=== PATIENT | male | born 1990 | race Caucasian/White ===

== ENCOUNTER 2019-08-29 16:42 | Observation (INO) | payer OTHER ==
[~2019-08-29 16:42] MED LIST: Iopamidol 370 76% 100 ML VIAL ONE; Iopamidol-370 76% 500 ML 1 ML ONE
[2019-08-29 18:07] LABS: #Basophils 0.1 thou/uL (0.0-0.2); #Eosinphils 0.1 thou/uL (0.0-0.7); #Monocytes 1.2 thou/uL (0.11-0.59); #Neutrophils 6.2 thou/uL (1.40-6.50); %Basophils 0.8 % (0.0-1.0); %Eosinophils 1.2 % (0.0-10.0); %Lymphocytes 28.6 % (21.0-51.0); %Monocytes 10.9 % (0.0-10.0); %Neutrophils 58.5 % (42.0-75.0); Hemoglobin 15.9 g/dL (14.0-18.0); Mean Corpuscular HGB CONC 33.4 g/dL (32.0-36.0); Mean Corpuscular Hemoglobin 30.8 pg (27.0-31.0); Mean Corpuscular Volume 92.3 fL (78.0-98.0); Platelet Count 195 thou/uL (130-400); Red Blood Cell (RBC) Count 5.18 mill/uL (4.70-6.10); White Blood Cell (WBC) Count 10.5 thou/uL (4.8-10.8)
[2019-08-29 18:29] LABS: ALT (SGPT) 193 U/L (8-55); AST (SGOT) 83 U/L (5-34); Albumin 4.7 g/dL (3.5-5.0); Alkaline Phosphatase 47 U/L (40-110); Anion Gap 14 mmol/L (10-20); BUN (Urea Nitrogen) 10 mg/dL (8.9-20.6); Bilirubin, Total 2.5 mg/dL (0.2-1.2); Calc. Creatinine Clearance 0 mL/min (70-130); Calcium 9.7 mg/dL (7.8-10.44); Carbon Dioxide 25 mmol/L (22-29); Chloride 103 mmol/L (98-107); Estimated GFR-MDRD 78; Glucose 90 mg/dL (70-105); Lipase 12 U/L (8-78); Potassium 3.8 mmol/L (3.5-5.1); Protein, Total 8.7 g/dL (6.0-8.3); Sodium 138 mmol/L (136-145)
[2019-08-29] MEDS ORDERED: Morphine 4 MG/ML VIAL ONE (19:45)
[2019-08-29] MEDS ORDERED: Ondansetron PF 4 MG/2 ML Vial ONE ×5 (19:45→19:48)
[2019-08-29] MEDS ORDERED: Piperacillin/Tazobactam 3.375 GM VIAL ONE (21:48)
--- NOTE | 2019-08-29 21:50 | CT ---
CT OF THE ABDOMEN AND PELVIS WITH IV CONTRAST INDICATION: Right lower quadrant abdominal pain with fever COMPARISON: None FINDINGS: ABDOMEN: Lung bases: There is bibasilar atelectasis Liver: There is fatty infiltration of the liver. There is a triangular region of peripheral enhanceme nt involving segment 6 of the right hepatic lobe. This is suspicious for a transient hepatic attenuation difference or possibly a small AV fistula. Small capillary hemangioma could have a simila r appearance. Gallbladder: Normal appearing. Pancreas: Normal. Adrenal glands: Normal. Spleen: Normal. Kidneys and ureters: Normal. No hydronephrosis. Vasculature: Normal. Lymph nodes:No lymphadenopathy. Free fluid in abdomen:Mild amount of fluid is seen within the right lower quadrant of the abdomen adj acent to an enlarged and inflamed appendix. PELVIS: Small and large bowel: Normal Appendix:The appendix is enlarged and the right lower quadrant on image 73 of series 2 measuring 11 m m. There is inflammatory stranding seen within this region. There is mild cecal apical wall thickening. There is mild wall thickening involving the adjacent terminal ileum, likely reactive. No overt drainable fluid collection is evident. Bladder: Normal. Rectal and perirectal soft tissues:Normal. Reproductive structures: Normal. Free fluid in pelvis: No free fluid is evident. Lymphadenopathy pelvis: There are enlarged lymph nodes within the right inguinal region. The largest measuring up to 2 cm. Osseous structures: No acute osseous abnormality. No destructive osteolytic or osteoblastic lesion i s identified. Soft tissues:Normal. IMPRESSION: 1. Findings of noncomplicated acute appendicitis 2. Findings called to Valeria Barreto NP at 9:45 PM on August 29, 2019. 3. Enlarged lymph nodes of the right inguinal region likely reactive. 4. Fatty liver with suspected transient hepatic attenuation difference.
[2019-08-29] MEDS ORDERED: Sodium Chloride 0.9% 1,000 ML IV SCH (23:28)
[2019-08-29] MEDS ORDERED: Dextrose 50% Abboject 50 ML SYRINGE SLOW IVP PRN (23:42)
[2019-08-29] MEDS ORDERED: Promethazine HCl 25 MG/ML VIAL IM PRN (23:42)
[2019-08-29] MEDS ORDERED: HumaLOG 300 UNITS/3 ML VIAL SC PRN (23:42)
[2019-08-29] MEDS ORDERED: hydrALAZINE 20 MG/ML VIAL SLOW IVP PRN (23:42)
[2019-08-29] MEDS ORDERED: Dextrose 5% in Water 1,000 ML IV PRN (23:42)
[2019-08-29] MEDS ORDERED: Ondansetron PF 4 MG/2 ML Vial IVP PRN (23:42)
[2019-08-29] MEDS ORDERED: Morphine 4 MG/ML VIAL SLOW IVP PRN (23:42)
[2019-08-29] MEDS ORDERED: Morphine 2 MG/ML SYRINGE SLOW IVP PRN (23:42)
[2019-08-29 23:45] VITALS: BMI 26.7
[2019-08-30] MEDS: Sodium Chloride 0.9% 1,000 ML IV SCH ×2 (01:09→11:50)
[2019-08-30] MEDS ORDERED: Piperacillin/Tazobactam 3.375 GM in Sodium Chloride 0.9% 100 ML IVPB SCH (04:00)
[2019-08-30] MEDS: Piperacillin/Tazobactam 3.375 GM in Sodium Chloride 0.9% 100 ML IVPB SCH ×2 (04:49→09:59)
[2019-08-30] MEDS ORDERED: Bupivacaine 0.25% HCL 30 ML VIAL ONE (07:28)
[2019-08-30] MEDS ORDERED: Lidocaine 1% w/Epinephrine 1:100K 20 ML VIAL ONE (07:28)
[2019-08-30] MEDS ORDERED: Fentanyl 100 MCG/2 ML VIAL ONE ×2 (07:59→09:36)
[2019-08-30] MEDS ORDERED: Succinylcholine Chloride 20 MG/ML 10 ml SYRINGE FS ONE (08:12)
[2019-08-30] MEDS ORDERED: Rocuronium Bromide 10 MG/ML (10ML VIAL) ONE (08:12)
[2019-08-30] MEDS ORDERED: PROPOFOL 200 MG/20 ML VIAL ONE (08:12)
[2019-08-30] MEDS ORDERED: Ketorolac Tromethamine 30 MG/ML VIAL ONE (08:12)
[2019-08-30] MEDS ORDERED: Ondansetron PF 4 MG/2 ML Vial ONE (08:12)
[2019-08-30] MEDS ORDERED: Glycopyrrolate 0.2 MG/ML 5 ML SYRINGE ONE (08:12)
[2019-08-30] MEDS ORDERED: Dexamethasone 20 MG/5 ML VIAL ONE (08:12)
[2019-08-30] MEDS ORDERED: Lidocaine 1% PF 5 ML VIAL ONE (08:12)
--- NOTE | 2019-08-30 08:37 | HP ---
CHIEF COMPLAINT: Right lower quadrant pain. HISTORY OF PRESENT ILLNESS: This is a 29-year-old male, who presents with a history of diffuse mild abdominal pain, became more localized to the right lower quadrant, pain described as sharp 8/10, worsened overnight, seen in the emergency room, where CT scan shows acute appendicitis. Never had this pain before. Denies chronic abdominal pain. Denies history of chronic inflammatory bowel disease or Crohn disease. PAST MEDICAL HISTORY: He denies. PAST SURGICAL HISTORY: Denies. MEDICATIONS: Taken daily, none. ALLERGIES: NO KNOWN DRUG ALLERGIES. SOCIAL HISTORY: No smoking, alcohol or other drugs. REVIEW OF SYSTEMS: Ten-system review of systems is otherwise negative unless described above. PHYSICAL EXAMINATION: VITAL SIGNS: Blood pressure 112/73, pulse 92, and respirations 14. He is afebrile. HEENT: Sclerae anicteric. Oropharynx clear. NECK: No lymphadenopathy. CHEST: Clear. HEART: Regular rate. ABDOMEN: Soft. Tender in the right lower quadrant with localized guarding without rebound. No abdominal hernias. EXTREMITIES: No ischemia or edema to extremities. LABORATORY DATA: White blood cell count 10 and hemoglobin 15. Creatinine 1.1. Bilirubin up slightly at 2.5, alk phos 47. ASSESSMENT: Acute appendicitis. PLAN: Laparoscopic appendectomy. Risks, benefits, and alternatives discussed. He gives consent. We will do this today. I suspect his bilirubin is up secondary to stress cholestasis. We will follow and check that postop. Job ID: [id number]
[2019-08-30] MEDS ORDERED: HYDROmorphone 2 MG/ML VIAL SLOW IVP PRN (08:39)
[2019-08-30] MEDS ORDERED: Promethazine HCl 25 MG/ML VIAL SLOW IVP PRN (08:39)
[2019-08-30] MEDS ORDERED: Ondansetron HCl/PF 4 MG/2 ML Vial IVP PRN (08:39)
[2019-08-30] MEDS ORDERED: Promethazine HCl 25 MG/ML VIAL IM PRN (08:39)
[2019-08-30] MEDS ORDERED: Ketorolac Tromethamine 30 MG/ML VIAL IVP PRN (08:39)
[2019-08-30] MEDS ORDERED: Morphine Sulfate 2 MG/ML SYRINGE SLOW IVP PRN (08:39)
[2019-08-30] MEDS ORDERED: Meperidine HCl/PF 25 MG/ML VIAL SLOW IVP PRN (08:39)
[2019-08-30] MEDS ORDERED: PACU-Morphine 4MG/ML VIAL SLOW IVP PRN (08:39)
[2019-08-30] MEDS ORDERED: Famotidine 20 MG TAB PO SCH (09:00)
[2019-08-30] MEDS ORDERED: Famotidine/PF 20 mg/2ml Vial SLOW IVP SCH (09:00)
[2019-08-30] MEDS ORDERED: HYDROcodone/Acetaminophen 7.5/325 mg Tablet PO PRN ×2 (09:24)
[2019-08-30] MEDS ORDERED: Meperidine HCl/PF 25 MG/ML VIAL ONE (09:33)
--- NOTE | 2019-08-30 09:42 | OP ---
DATE OF PROCEDURE: 08/30/2019 PREOPERATIVE DIAGNOSIS: Acute appendicitis. POSTOPERATIVE DIAGNOSIS: Acute appendicitis. PROCEDURE PERFORMED: Laparoscopic appendectomy. ANESTHESIA: General. ESTIMATED BLOOD LOSS: Minimal. COMPLICATIONS: None. SPECIMEN: Appendix. FINDINGS: Appendicitis. DESCRIPTION OF PROCEDURE: The patient was taken to the operating room and laid supine on the operating table. After general anesthetic was obtained, the abdomen was shaved, prepped, and draped in a sterile fashion. Suazo catheter had been placed. A curved incision was made below the umbilicus. Cautery was used to dissect down to and score the fascia. The abdominal cavity was entered bluntly using a Christin clamp. A holding stitch of PDS was placed on each side of the fascia. A Lencho trocar was placed. High-flow pneumoperitoneum was obtained. A suprapubic 5-mm port and a left lower quadrant 5-mm port were placed under direct visualization. The cecum was rolled over to reveal acute appendicitis. A stapler was fired across the base of the appendix. A reload was fired across the mesoappendix. The appendix was placed in an EndoCatch bag and brought out through the Lencho. There was some inflammatory change in the right lower quadrant. This was all irrigated as was his pelvis. There was no obvious purulence. No damage to any intraabdominal structures. All port sites were infiltrated using local anesthetic. All ports were removed under camera visualization. Pneumoperitoneum was let down. PDS was used to close the fascial defect below the umbilicus. All incisions were irrigated and closed using 4-0 Monocryl and Dermabond. The patient was sent to Recovery in stable condition. All instrument counts, needle counts, and lap counts were correct. Job ID: [id number]
[2019-08-30 11:57] VITALS: BP 114/76; TEMP 97.6
== END 2019-08-30 13:05 | disposition home or self-care (01) ==
LOC: ERS 16:42 → SURG B 21:52
PROVIDERS: ADMIT Surgery; ATTEND Surgery
PROC: 0DTJ4ZZ Resection of Appendix, Percutaneous Endoscopic Approach (ICD-10-PCS; principal; 2019-08-30)
DX: K35.80 Unspecified acute appendicitis (principal); E11.9 Type 2 diabetes mellitus without complications
CPT/HCPCS: 36415; 36416; 74177; 80053; 83605; 83690; 85025; 88304; 96361; 96365; 96366; 96375; G0378; J1100; J1885; J2001; J2175; J2270; J2405; J2543; J2704; J3010; J3490; Q9967; S0020